=== PATIENT | male | born 1980 | race Caucasian/White ===

== ENCOUNTER 2024-04-28 13:57 | Emergency (ER) | payer OTHER ==
[~2024-04-28] VITALS: Ht 165.1 cm; Wt 95.3 kg
[2024-04-28 14:09] VITALS: BP_SYST 121; PULSE 108; RESP 16; TEMP 97.3; O2SAT 100
[2024-04-28] MEDS: CEFAZOLIN 2 GM IVPB PREMIX 50 ML IV ONE (15:33)
[2024-04-28] MEDS: KETOROLAC TROMETHAMINE 30 MG VIAL IVP ONE (15:36)
[2024-04-28] MEDS ORDERED: IBUP-1969 PO (16:19)
[2024-04-28] MEDS ORDERED: DICL20GE TP (16:19)
[2024-04-28] MEDS ORDERED: SULF1TAB48 PO (16:19)
[2024-04-28] MEDS ORDERED: CEPH-548 PO (16:19)
[2024-04-28 16:26] VITALS: BP_SYST 121; PULSE 108; RESP 16; TEMP 97.3; O2SAT 100
== END 2024-04-28 16:24 | disposition home or self-care (01) ==
LOC: SED 13:57
DX: S60.462A Insect bite (nonvenomous) of right middle finger, initial encounter (principal); L03.011 Cellulitis of right finger; W57.XXXA Bitten or stung by nonvenomous insect and other nonvenomous arthropods, initial encounter; Y93.89 Activity, other specified; Y92.89 Other specified places as the place of occurrence of the external cause; Y99.8 Other external cause status
CPT/HCPCS: 99284; 96365; 96375; J0690; J1885